=== PATIENT | female | born 1995 | race African-American/Black ===

== ENCOUNTER 2018-06-08 17:03 | Observation (INO) | payer MEDICAID ==
[~2018-06-08] VITALS: Ht 165.1 cm; Wt 61.2 kg
== END 2018-06-08 17:30 | disposition home or self-care (01) ==
LOC: L&D 17:03
PROVIDERS: ADMIT Obstetrics & Gynecology; ATTEND Obstetrics & Gynecology
DX: O26.892 Other specified pregnancy related conditions, second trimester (principal); R10.2 Pelvic and perineal pain; N89.8 Other specified noninflammatory disorders of vagina; Z3A.22 22 weeks gestation of pregnancy
CPT/HCPCS: 99281; G0378